=== PATIENT | male | born 1955 | race Caucasian/White ===

== ENCOUNTER 2020-08-09 07:51 | Outpatient (CLI) | payer MEDICARE, OTHER ==
[2020-08-09] MEDS ORDERED: Iopamidol 370 76% 100 ML VIAL ONE (13:57)
== END 2020-08-09 07:52 | disposition home or self-care (01) ==
LOC: BICCT 07:51
PROVIDERS: ATTEND Surgery
DX: K43.9 Ventral hernia without obstruction or gangrene (principal); K40.90 Unilateral inguinal hernia, without obstruction or gangrene, not specified as recurrent; N28.9 Disorder of kidney and ureter, unspecified
CPT/HCPCS: 74177; 82565; Q9967

== ENCOUNTER 2020-09-09 11:19 | Outpatient (CLI) | payer MEDICARE ==
[2020-08-23 13:01] LABS: #Basophils 0.1 10x3/uL (0.0-0.2); #Eosinphils 0.3 10x3/uL (0.0-0.5); #Monocytes 0.7 10x3/uL (0.0-1.1); #Neutrophils 5.3 10x3/uL (1.5-8.4); %Basophils 0.7 % (0.0-2.0); %Eosinophils 3.6 % (0.0-6.0); %Lymphocytes 14.5 % (18.0-47.0); %Monocytes 9.3 % (0.0-10.0); %Neutrophils 71.2 % (40.0-75.0); Hemoglobin 12.2 g/dL (13.5-17.5); Mean Corpuscular HGB CONC 34.2 g/dL (32.0-36.0); Mean Corpuscular Hemoglobin 32.5 pg (27.0-33.0); Mean Corpuscular Volume 95.2 fl (81.2-95.1); Mean Platelet Volume 9.3 fl (7.4-10.4); Platelet Count 284 10x3/uL (150-450); Red Blood Cell (RBC) Count 3.75 10x6/uL (4.32-5.72); White Blood Cell (WBC) Count 7.5 10x3/uL (3.5-10.5)
[2020-08-23 13:23] LABS: Anion Gap 15 mmol/L (10-20); BUN (Urea Nitrogen) 20 mg/dL (8.4-25.7); Calc. Creatinine Clearance 0 mL/min (70-130); Calcium 9.3 mg/dL (7.8-10.44); Carbon Dioxide 30 mmol/L (23-31); Chloride 99 mmol/L (98-107); Glucose 79 mg/dL (80-115); Potassium 4.1 mmol/L (3.5-5.1); Sodium 140 mmol/L (136-145)
--- NOTE | 2020-08-29 14:43 | EKG ---
Test Reason : Blood Pressure : / mmHG Vent. Rate : 065 BPM Atrial Rate : 227 BPM P-R Int : 000 ms QRS Dur : 102 ms QT Int : 412 ms P-R-T Axes : 000 -01 -08 degrees QTc Int : 428 ms Atrial fibrillation Minimal voltage criteria for LVH, may be normal variant Abnormal ECG Confirmed by MICHELL PENA (2) on 08/29/2020 2:42:56 PM Referred By: CHITO Confirmed By:MICHELL PENA
[2020-09-10 01:54] LABS: SARS-CoV-2 PCR by NAA Not Detected (NotDetected)
== END 2020-09-09 11:20 | disposition home or self-care (01) ==
LOC: LABBT 11:19
PROVIDERS: ATTEND Surgery
DX: Z01.818 Encounter for other preprocedural examination (principal); Z20.822 Contact with and (suspected) exposure to COVID-19; K40.90 Unilateral inguinal hernia, without obstruction or gangrene, not specified as recurrent
CPT/HCPCS: 80048; 85025; 93005; U0003; U0005; 87635; 93010

== ENCOUNTER 2020-09-12 05:49 | Day surgery (SDC) | payer MEDICARE ==
[2020-09-11 12:35] VITALS: BMI 38.9
[2020-09-12] MEDS ORDERED: Midazolam HCl 2 mg/2 ml Vial ONE (06:32)
[2020-09-12] MEDS ORDERED: SUGAMMADEX SODIUM 200 MG/2 ML VIAL ONE ×2 (06:33→07:16)
[2020-09-12] MEDS ORDERED: Fentanyl 100 MCG/2 ML VIAL ONE (06:33)
[2020-09-12] MEDS ORDERED: Vancomycin 1 GM/200 ML BAG ONE (07:08)
[2020-09-12] MEDS ORDERED: Ketamine 50 MG/ML (10ML VIAL) ONE (07:21)
[2020-09-12] MEDS ORDERED: Bupivacaine 0.25% HCL 30 ML VIAL ONE (08:05)
[2020-09-12] MEDS ORDERED: XYLOCAINE 2%-EPI 1:100,000 20 ML VIAL ONE (08:05)
[2020-09-12] MEDS ORDERED: Bupivacaine PF 0.5% 30 ML VIAL ONE (08:48)
[2020-09-12] MEDS ORDERED: Ketorolac Tromethamine 30 MG/ML VIAL ONE (09:35)
[2020-09-12] MEDS ORDERED: PROPOFOL 200 MG/20 ML VIAL ONE (09:35)
[2020-09-12] MEDS ORDERED: Succinylcholine 200 MG/10 ml SYRINGE FS ONE (09:35)
[2020-09-12] MEDS ORDERED: Dexamethasone 20 MG/5 ML VIAL ONE (09:35)
[2020-09-12] MEDS ORDERED: Rocuronium Bromide 10 MG/ML (10ML VIAL) ONE (09:35)
[2020-09-12] MEDS ORDERED: Lidocaine 1% PF 5 ML VIAL ONE (09:35)
[2020-09-12] MEDS ORDERED: Ondansetron PF 4 MG/2 ML Vial ONE (09:35)
--- NOTE | 2020-09-13 00:51 | OP ---
DATE OF PROCEDURE: 09/12/2020 PREOPERATIVE DIAGNOSES: Bilateral inguinal hernia, umbilical hernia. POSTOPERATIVE DIAGNOSES: Bilateral inguinal hernia, umbilical hernia. PROCEDURE PERFORMED: 1. Laparoscopic converted to open left inguinal hernia repair with mesh, PHS extended. 2. Ventral/umbilical hernia repair with mesh, Ventralex ST 8 cm. ANESTHESIA: General. ESTIMATED BLOOD LOSS: 50 mL. COMPLICATIONS: None. FINDINGS: Laparoscopic procedure was aborted secondary to lack of intraabdominal space given his size and large size of these hernias. DESCRIPTION OF PROCEDURE: The patient was taken to the operating room and laid supine on the operating table. After general anesthetic was obtained, a Carr was placed. Abdomen was shaved, prepped and draped in a sterile fashion. The umbilical hernia was reduced. The left inguinal hernia was not reducible. An incision was made above and around the umbilicus, cautery dissected down to and into the abdominal cavity. The 12 mm robot trocar was placed. High-flow pneumoperitoneum was obtained. Left and right abdominal 8 mm robot trocars were placed. All ports were docked to the robot. There was significant loss of intraabdominal domain. The majority of the sigmoid colon was in this left scrotal hernia. It was not able to be reduced with tension on the scrotal side and pulling down. Decision was made to open. All ports were removed and the surgeons scrubbed back into the bedside. Oblique incision was made in the left lower abdomen above the pubic tubercle with cautery, dissected down through Kayce's to expose external oblique. External oblique fibers opened along through the course of the external ring. There was a large left indirect inguinal hernia including most of the sigmoid colon pushing on the scrotum. This was able to be slowly brought up into the wound. The hernia sac was dissected away from the cord structures and finally able to be reduced back into the abdominal cavity. The PHS extended mesh was brought into the sterile field. The underlay was placed in the preperitoneal space. The mesh was then laid out to cover the inguinal floor. It was cut laterally to incorporate the internal ring. The mesh was sewn via permanent braided suture to the pubic tubercle distally, shelving edge of inguinal ligament laterally as well as transverse arch medially. The extra mesh was tucked back into the external oblique proximally. Meticulous hemostasis was obtained. The wound was irrigated. External oblique closed using 3-0 Vicryl, skin closed using 3-0 Vicryl and 4-0 Monocryl. A tunneled catheter for postoperative pain was threaded from above the incision and left on top of the mesh for postoperative pain control. Dermabond was used to affix the skin. Incision was made around the umbilicus. The ventral hernia fat was dissected away from the edges of the fascia and able to be reduced back into the abdominal cavity. This was a sizable defect. The [address] mesh was brought into the sterile field. The underlay was placed in the abdominal cavity. Its tails laid out lateral. The tails were sewn using permanent braided suture to the edges of the fascia on the lateral side, the superior and inferior sides. The tails were cut at the level of the fascia. The fascia was closed over the mesh. The wound was irrigated. Local anesthetic was applied. The wound was closed using 3-0 Vicryl, 4-0 Monocryl, and Dermabond. The patient was sent to Recovery in stable condition. All instrument counts, needle counts, lap counts were correct. The right-sided inguinal hernia, which was smaller and more subtle, was not repaired given the extent of swelling device that I expect in that left scrotum. He can come back for that repair to stay at a second stage procedure. Job ID: [id number]
== END 2020-09-12 13:12 | disposition home or self-care (01) ==
LOC: SDC 05:49
PROVIDERS: ATTEND Surgery
PROC: 0YU60JZ Supplement Left Inguinal Region with Synthetic Substitute, Open Approach (ICD-10-PCS; principal; 2020-09-12)
PROC: 0WUF0JZ Supplement Abdominal Wall with Synthetic Substitute, Open Approach (ICD-10-PCS; 2020-09-12)
DX: K40.20 Bilateral inguinal hernia, without obstruction or gangrene, not specified as recurrent (principal); K42.9 Umbilical hernia without obstruction or gangrene; I11.0 Hypertensive heart disease with heart failure; I50.9 Heart failure, unspecified; E78.5 Hyperlipidemia, unspecified; I48.91 Unspecified atrial fibrillation; I73.9 Peripheral vascular disease, unspecified; I87.8 Other specified disorders of veins; G47.30 Sleep apnea, unspecified; I69.398 Other sequelae of cerebral infarction; R26.89 Other abnormalities of gait and mobility; N40.0 Benign prostatic hyperplasia without lower urinary tract symptoms; C44.90 Unspecified malignant neoplasm of skin, unspecified; Z53.31 Laparoscopic surgical procedure converted to open procedure; Z86.14 Personal history of Methicillin resistant Staphylococcus aureus infection; Z79.01 Long term (current) use of anticoagulants; Z79.899 Other long term (current) drug therapy; Z88.0 Allergy status to penicillin
CPT/HCPCS: A4306; C1781; J1100; J1885; J2250; J2405; J2704; J3010; J3370; S0020

== ENCOUNTER 2020-12-30 11:47 | Outpatient (CLI) | payer MEDICARE ==
[2020-12-30 12:25] LABS: #Eosinphils 0.5 10x3/uL (0.0-0.5); #Monocytes 0.7 10x3/uL (0.0-1.1); #Neutrophils 6.5 10x3/uL (1.5-8.4); %Basophils 0.3 % (0.0-2.0); %Eosinophils 6.1 % (0.0-6.0); %Lymphocytes 11.7 % (18.0-47.0); %Monocytes 7.9 % (0.0-10.0); %Neutrophils 73.4 % (40.0-75.0); Hemoglobin 12.3 g/dL (13.5-17.5); Mean Corpuscular HGB CONC 33.1 g/dL (32.0-36.0); Mean Corpuscular Hemoglobin 30.4 pg (27.0-33.0); Mean Corpuscular Volume 92.1 fl (81.2-95.1); Mean Platelet Volume 9.4 fl (7.4-10.4); Platelet Count 261 10x3/uL (150-450); RBC Distribution Width 14.2 % (11.5-14.5); Red Blood Cell (RBC) Count 4.04 10x6/uL (4.32-5.72); White Blood Cell (WBC) Count 8.8 10x3/uL (3.5-10.5)
[2020-12-30 12:41] LABS: Anion Gap 17 mmol/L (10-20); BUN (Urea Nitrogen) 25 mg/dL (8.4-25.7); Calc. Creatinine Clearance 0 mL/min (70-130); Calcium 9.8 mg/dL (7.8-10.44); Carbon Dioxide 26 mmol/L (23-31); Chloride 102 mmol/L (98-107); Glucose 124 mg/dL (80-115); Potassium 4.1 mmol/L (3.5-5.1); Sodium 141 mmol/L (136-145)
[2020-12-30 23:38] LABS: SARS-CoV-2 PCR by NAA Not Detected (NotDetected)
== END 2020-12-30 11:48 | disposition home or self-care (01) ==
LOC: LABBT 11:47
PROVIDERS: ATTEND Surgery
DX: Z01.818 Encounter for other preprocedural examination (principal); K40.90 Unilateral inguinal hernia, without obstruction or gangrene, not specified as recurrent; Z20.822 Contact with and (suspected) exposure to COVID-19
CPT/HCPCS: 80048; 85025; 93005; U0003; U0005; 93010

== ENCOUNTER 2021-01-02 06:07 | Day surgery (SDC) | payer MEDICARE ==
[2021-01-01 09:09] VITALS: BMI 29.2
[2021-01-02] MEDS ORDERED: Bupivacaine 0.25% HCL 30 ML VIAL ONE (06:37)
[2021-01-02] MEDS ORDERED: EPINEPHrine 1 MG/ML AMP ONE (06:37)
[2021-01-02] MEDS ORDERED: Lidocaine 2% PF 5 ML VIAL ONE (06:37)
[2021-01-02] MEDS ORDERED: Bupivacaine PF 0.5% 30 ML VIAL ONE (06:44)
[2021-01-02] MEDS ORDERED: Fentanyl 100 MCG/2 ML VIAL ONE ×2 (06:59→08:58)
[2021-01-02] MEDS ORDERED: Midazolam HCl 2 mg/2 ml Vial ONE (06:59)
[2021-01-02] MEDS ORDERED: Levofloxacin 500 mg/D5W 100 ml Premix Bag ONE (07:11)
[2021-01-02] MEDS ORDERED: Rocuronium Bromide 10 MG/ML (10ML VIAL) ONE (07:28)
[2021-01-02] MEDS ORDERED: Ondansetron PF 4 MG/2 ML Vial ONE (07:28)
[2021-01-02] MEDS ORDERED: PHENYLEPHRINE-NS 100 MCG/ML 10 ML SYRINGE ONE (07:28)
[2021-01-02] MEDS ORDERED: ePHEDrine Sulfate 50 MG/10 ML VIAL ONE (07:28)
[2021-01-02] MEDS ORDERED: PROPOFOL 200 MG/20 ML VIAL ONE (07:28)
[2021-01-02] MEDS ORDERED: Lidocaine 1% PF 5 ML VIAL ONE (07:28)
[2021-01-02] MEDS ORDERED: Furosemide 40 MG TAB PO SCH (12:45)
== END 2021-01-02 13:30 | disposition home or self-care (01) ==
LOC: SDC 06:07
PROVIDERS: ATTEND Surgery
PROC: 0YU50JZ Supplement Right Inguinal Region with Synthetic Substitute, Open Approach (ICD-10-PCS; principal; 2021-01-02)
DX: K40.90 Unilateral inguinal hernia, without obstruction or gangrene, not specified as recurrent (principal); Z79.01 Long term (current) use of anticoagulants; Z79.899 Other long term (current) drug therapy; Z88.0 Allergy status to penicillin; Z91.030 Bee allergy status
CPT/HCPCS: 49505; A4306; C1781; J0171; J0690; J1956; J2001; J2250; J2405; J2704; J3010; S0020